=== PATIENT | female | born 1945 | race Caucasian/White ===

== ENCOUNTER 2016-10-19 08:11 | Day surgery (SDC) | payer MEDICARE, BC ==
[2016-10-19] MEDS ORDERED: FENTANYL 100MCG/2ML SOL ONE (08:34)
[2016-10-19] MEDS ORDERED: ONDANSETRON HCL 4 MG/2 ML SOL ONE (08:34)
[2016-10-19] MEDS ORDERED: PROPOFOL 10 MG/ML EMU IV ONE (08:34)
[2016-10-19] MEDS ORDERED: MIDAZOLAM 2 MG/2 ML SOL ONE (08:34)
[2016-10-19] MEDS ORDERED: LIDOCAINE HCL 1% MPF SOL ONE (08:34)
[2016-10-19] MEDS: LIDOCAINE HCL 2% MPF SOL ONE ×2 (10:02→10:09)
[2016-10-19] MEDS: BUPIVACAINE HCL 0.5% MPF 10 ML SOL ONE ×2 (10:02→10:09)
[2016-10-19 10:28] VITALS: TEMP 97.6
[2016-10-19] MEDS ORDERED: KETOROLAC TROMETHAMINE 30 MG/ML SOL ONE (10:34)
[2016-10-19 10:43] VITALS: BP 146/79; PULSE 55; RESP 14; O2SAT 92
== END 2016-10-19 11:50 | disposition home or self-care (01) | DRG 558 ==
LOC: SURG 08:11
PROVIDERS: ATTEND Orthopaedic Surgery
DX: M65.321 Trigger finger, right index finger (principal)
CPT/HCPCS: J1885; J2250; J2405; J3010; A6402; J2001; J2704